=== PATIENT | female | born 1945 | race Caucasian/White ===

== ENCOUNTER 2016-10-19 17:34 | Inpatient (IN) | payer MEDICARE ==
[~2016-10-19] VITALS: Ht 170.2 cm; Wt 100.3 kg
[2016-10-19] MEDS ORDERED: LISI40TA PO (17:46)
[2016-10-19] MEDS ORDERED: FLUT9.9S NEB (17:46)
[2016-10-19] MEDS ORDERED: ALBU0.63 NEB (17:46)
[2016-10-19] MEDS ORDERED: ONDANSETRON 2MG/ML, 2ML ONE ×2 (18:18→22:08)
[2016-10-19] MEDS ORDERED: SODIUM CHLORIDE 0.9% 1,000ML IVBOLUS ONE ×2 (18:30→19:30)
[2016-10-19] MEDS ORDERED: ONDANSETRON 2MG/ML, 2ML IVPush ONE (18:30)
[2016-10-19] MEDS ORDERED: PLEASE ENTER ALLERGIES MC SCH ×2 (18:30)
[2016-10-19 19:06] LABS: ASPARTATE AMINO TRANSFERASE 35 U/L (15-37); BLOOD UREA NITROGEN 64 mg/dL (7-18)
[2016-10-19 19:12] LABS: IS PT STATUS REG ER OR PRE ER? YES
[2016-10-19] MEDS ORDERED: PHYTONADIONE 5 MG TABLET PO ONE (22:00)
[2016-10-19] MEDS ORDERED: FENTANYL PF 100 MCG/2ML ONE (22:08)
[2016-10-19] MEDS: ONDANSETRON 2MG/ML, 2ML IVPush PRN (22:10)
[2016-10-19] MEDS: FENTANYL PF 100 MCG/2ML IVPush PRN (22:11)
[2016-10-20] MEDS: FAMOTIDINE 20 MG/2 ML IVPush SCH ×2 (00:16→08:04)
[2016-10-20] MEDS: SODIUM CHLORIDE 0.9% 1,000 ML IV SCH ×3 (00:16→22:32)
[2016-10-20] MEDS: CEFTRIAXONE PMX 1GM/50ML 50 ML IV SCH ×2 (02:00→10:18)
[2016-10-20] MEDS: FENTANYL PF 100 MCG/2ML IVPush PRN ×5 (02:50→20:57)
[2016-10-20 04:13] VITALS: BP 163/90
[2016-10-20 06:10] LABS: BLOOD UREA NITROGEN 55 mg/dL (7-18)
[2016-10-20 06:11] LABS: ASPARTATE AMINO TRANSFERASE 27 U/L (15-37)
[2016-10-20 07:05] VITALS: BP 162/85
[2016-10-20] MEDS: ONDANSETRON 2MG/ML, 2ML IVPush PRN ×2 (08:02→15:44)
[2016-10-20] MEDS: LACTULOSE 10 GM/15 ML UDC PO SCH ×3 (08:06→21:00)
[2016-10-20] MEDS: PHYTONADIONE 10 MG/ML, 1ML SQ SCH (10:10)
[2016-10-20] MEDS ORDERED: ONDANSETRON 2MG/ML, 2ML ONE (12:49)
[2016-10-20] MEDS ORDERED: SUCCINYLCHOLINE 20 MG/ML, 10ML ONE (12:49)
[2016-10-20] MEDS ORDERED: PROPOFOL 10 MG/ML, 20ML ONE (12:49)
[2016-10-20] MEDS ORDERED: DEXAMETHASONE 4 MG/ML, 1ML ONE (12:49)
[2016-10-20] MEDS ORDERED: MIDAZOLAM 1 MG/ML, 2ML ONE (12:50)
[2016-10-20] MEDS ORDERED: FENTANYL PF 250 MCG/5ML ONE (12:50)
[2016-10-20] MEDS ORDERED: hydrALAzine 20 MG/ML, 1ML IV PRN (13:30)
[2016-10-20] MEDS ORDERED: ACETAMINOPHEN 325 MG TABLET PO PRN (13:30)
[2016-10-20] MEDS ORDERED: OXYcodone 5 MG/5 ML ORAL.SOL UDC PO PRN (13:30)
[2016-10-20] MEDS ORDERED: ONDANSETRON 2MG/ML, 2ML IVPush PRN (13:30)
[2016-10-20] MEDS ORDERED: LABETALOL 5MG/ML, 20ML IV PRN (13:30)
[2016-10-20] MEDS ORDERED: PROMETHAZINE 25 MG/ML, 1ML IV PRN (13:30)
[2016-10-20] MEDS ORDERED: HYDROcodone/APAP 7.5-325MG/15ML UDC PO PRN (13:30)
[2016-10-20] MEDS ORDERED: EPHEDRINE 50 MG/ML, 1ML IVPush PRN (13:30)
[2016-10-20] MEDS ORDERED: FENTANYL PF 100 MCG/2ML ONE (13:42)
[2016-10-20] MEDS: FENTANYL PF 100 MCG/2ML IV PRN ×2 (13:45→14:25)
[2016-10-20 15:03] VITALS: BP 169/91
[2016-10-20] MEDS: PHENAZOPYRIDINE 200 MG TABLET PO SCH ×2 (16:39→20:57)
[2016-10-20] MEDS ORDERED: OMNIPAQUE 350 MG/ML, 50 ML BOTTLE ONE (17:28)
[2016-10-20 18:58] VITALS: BP 151/82
[2016-10-20] MEDS ORDERED: LISINOPRIL 20 MG TABLET PO SCH (21:30)
[2016-10-20] MEDS ORDERED: LISINOPRIL 20 MG TABLET HOMEMEDPO SCH (22:30)
[2016-10-20] MEDS: LISINOPRIL 40 MG HOMEMEDPO SCH (22:30)
[2016-10-21] MEDS: ONDANSETRON 2MG/ML, 2ML IVPush PRN ×3 (01:43→21:15)
[2016-10-21] MEDS: FENTANYL PF 100 MCG/2ML IVPush PRN ×5 (01:44→21:15)
[2016-10-21 01:53] VITALS: BP 136/69
[2016-10-21 05:39] LABS: BLOOD UREA NITROGEN 47 mg/dL (7-18)
[2016-10-21] MEDS: SODIUM CHLORIDE 0.9% 1,000 ML IV SCH ×4 (06:09→23:42)
[2016-10-21 06:50] VITALS: BP 152/75
[2016-10-21 07:00] VITALS: BP 131/81
[2016-10-21] MEDS: LACTULOSE 10 GM/15 ML UDC PO SCH ×2 (09:00→21:00)
[2016-10-21] MEDS ORDERED: LISINOPRIL 20 MG TABLET HOMEMEDPO SCH (09:00)
[2016-10-21] MEDS: FAMOTIDINE 20 MG/2 ML IVPush SCH (10:20)
[2016-10-21] MEDS: PHENAZOPYRIDINE 200 MG TABLET PO SCH ×3 (10:34→21:00)
[2016-10-21] MEDS: CEFTRIAXONE PMX 1GM/50ML 50 ML IV SCH (10:35)
[2016-10-21] MEDS: PHYTONADIONE 10 MG/ML, 1ML SQ SCH (10:41)
[2016-10-21] MEDS: LORazepam 2 MG/ML, 1ML IVPush PRN ×2 (12:38→21:15)
[2016-10-21 14:54] VITALS: BP 138/63
[2016-10-21] MEDS ORDERED: MAGNESIUM CITRATE 300ML ORAL SOL PO PRN (17:00)
[2016-10-21 18:38] VITALS: BP 133/77
[2016-10-21] MEDS: LISINOPRIL 40 MG HOMEMEDPO SCH (21:00)
[2016-10-22] MEDS: FENTANYL PF 100 MCG/2ML IVPush PRN ×3 (01:28→22:15)
[2016-10-22] MEDS: LORazepam 2 MG/ML, 1ML IVPush PRN ×2 (01:28→13:02)
[2016-10-22] MEDS: ONDANSETRON 2MG/ML, 2ML IVPush PRN ×3 (03:20→20:45)
[2016-10-22 04:23] VITALS: BP 132/58
[2016-10-22 06:21] LABS: BLOOD UREA NITROGEN 41 mg/dL (7-18)
[2016-10-22] MEDS: PHENAZOPYRIDINE 200 MG TABLET PO SCH ×2 (08:01→20:35)
[2016-10-22] MEDS: PHYTONADIONE 10 MG/ML, 1ML SQ SCH (09:00)
[2016-10-22] MEDS ORDERED: FENTANYL PF 100 MCG/2ML ONE (09:22)
[2016-10-22] MEDS ORDERED: MIDAZOLAM 1 MG/ML, 5ML ONE (09:22)
[2016-10-22] MEDS ORDERED: NALOXONE 1 MG/ML, 2ML ONE (09:23)
[2016-10-22] MEDS ORDERED: FLUMAZENIL 0.1 MG/1 ML, 5ML ONE (09:23)
[2016-10-22] MEDS ORDERED: MAGNESIUM SULFATE PMX 4GM/100M 100 ML IV ONE (13:13)
[2016-10-22] MEDS: LACTULOSE 10 GM/15 ML UDC PO SCH (21:00)
[2016-10-22] MEDS: CEFTRIAXONE PMX 1GM/50ML 50 ML IV SCH ×2 (21:25→21:30)
[2016-10-23] MEDS: LORazepam 2 MG/ML, 1ML IVPush PRN ×5 (01:00→23:12)
[2016-10-23] MEDS: FENTANYL PF 100 MCG/2ML IVPush PRN ×6 (02:00→23:47)
[2016-10-23] MEDS: ONDANSETRON 2MG/ML, 2ML IVPush PRN ×2 (04:20→21:08)
[2016-10-23] MEDS ORDERED: METOPROLOL 1 MG/ML, 5ML ONE ×2 (04:34→04:44)
[2016-10-23] MEDS: METOPROLOL 1 MG/ML, 5ML IVPush PRN ×3 (04:35→04:50)
[2016-10-23] MEDS ORDERED: LABETALOL 5MG/ML, 20ML IV ONE (06:40)
[2016-10-23 06:52] VITALS: BP 137/81
[2016-10-23] MEDS: SODIUM CHLORIDE 0.9% 1,000 ML IV SCH ×5 (08:00→16:00)
[2016-10-23] MEDS: DOCUSATE 100 MG CAPSULE PO SCH (09:00)
[2016-10-23] MEDS: FAMOTIDINE 20 MG/2 ML IVPush SCH (09:00)
[2016-10-23] MEDS: LACTULOSE 10 GM/15 ML UDC PO SCH ×2 (09:00→21:00)
[2016-10-23] MEDS: LISINOPRIL 40 MG HOMEMEDPO SCH ×2 (09:00→10:20)
[2016-10-23] MEDS: PHENAZOPYRIDINE 200 MG TABLET PO SCH ×4 (10:20→21:00)
[2016-10-23 12:35] VITALS: BP 101/71
[2016-10-23 14:52] VITALS: BP 158/84
[2016-10-23 18:22] LABS: IS PT STATUS REG ER OR PRE ER? NO
[2016-10-23 18:51] VITALS: BP 155/88
[2016-10-23] MEDS: CEFTRIAXONE PMX 1GM/50ML 50 ML IV SCH (23:02)
[2016-10-24] MEDS: FENTANYL PF 100 MCG/2ML IVPush PRN ×3 (00:36→08:34)
[2016-10-24 01:57] LABS: IS PT STATUS REG ER OR PRE ER? NO
[2016-10-24] MEDS: LORazepam 2 MG/ML, 1ML IVPush PRN ×2 (02:45→08:34)
[2016-10-24 03:07] VITALS: BP 170/98
[2016-10-24 03:40] VITALS: BP 160/88
[2016-10-24 06:36] VITALS: BP 160/90
[2016-10-24] MEDS: ONDANSETRON 2MG/ML, 2ML IVPush PRN (06:38)
[2016-10-24] MEDS: LISINOPRIL 40 MG HOMEMEDPO SCH (08:35)
[2016-10-24] MEDS: FAMOTIDINE 20 MG/2 ML IVPush SCH (08:36)
[2016-10-24] MEDS: LACTULOSE 10 GM/15 ML UDC PO SCH ×2 (08:37→20:13)
[2016-10-24] MEDS: DOCUSATE 100 MG CAPSULE PO SCH (08:37)
[2016-10-24] MEDS: PHENAZOPYRIDINE 200 MG TABLET PO SCH ×3 (08:39→20:07)
[2016-10-24 10:12] LABS: BLOOD UREA NITROGEN 27 mg/dL (7-18)
[2016-10-24 10:20] LABS: IS PT STATUS REG ER OR PRE ER? NO
[2016-10-24] MEDS ORDERED: FENTANYL 1500 MCG/30 ML PCA IV PRN (11:34)
[2016-10-24] MEDS ORDERED: FENTANYL 25 MCG PATCH ONE (11:43)
[2016-10-24] MEDS: FENTANYL 25 MCG PATCH TD SCH (12:13)
[2016-10-24 12:35] VITALS: BP 147/85
[2016-10-24] MEDS: HEPARIN 5,000 UNITS/ML, 1ML SQ SCH ×2 (14:49→20:06)
[2016-10-24] MEDS ORDERED: SODIUM CHLORIDE 0.9% 1,000 ML IV SCH (16:00)
[2016-10-24 19:56] VITALS: BP 154/91
[2016-10-24 21:27] VITALS: BP 119/85
[2016-10-24] MEDS ORDERED: POTASSIUM CHLORIDE 20 MEQ TAB.ER.PRT PO ONE (22:00)
[2016-10-24] MEDS ORDERED: POTASSIUM CHLORIDE 20 MEQ in SODIUM CHLORIDE 0.9% 250 ML IV ONE (22:00)
[2016-10-24 22:29] LABS: BLOOD UREA NITROGEN 24 mg/dL (7-18)
[2016-10-24] MEDS: SODIUM CHLORIDE 0.9% 1,000 ML IV SCH (22:44)
[2016-10-25] MEDS ORDERED: MAGNESIUM SULFATE PMX 2GM/50ML 50 ML IV ONE
[2016-10-25] MEDS ORDERED: POTASSIUM CHLORIDE 20 MEQ in SODIUM CHLORIDE 0.9% 250 ML IV ONE
[2016-10-25 03:19] VITALS: BP 151/83
[2016-10-25] MEDS: HEPARIN 5,000 UNITS/ML, 1ML SQ SCH ×3 (06:16→22:11)
[2016-10-25] MEDS: SODIUM CHLORIDE 0.9% 1,000 ML IV SCH ×2 (06:17→17:10)
[2016-10-25 06:43] VITALS: BP 162/91
[2016-10-25 07:33] LABS: ASPARTATE AMINO TRANSFERASE 28 U/L (15-37); BLOOD UREA NITROGEN 21 mg/dL (7-18)
[2016-10-25] MEDS: LISINOPRIL 40 MG HOMEMEDPO SCH (09:00)
[2016-10-25] MEDS: PHENAZOPYRIDINE 200 MG TABLET PO SCH ×3 (09:00→21:00)
[2016-10-25] MEDS: LACTULOSE 10 GM/15 ML UDC PO SCH ×2 (09:00→21:00)
[2016-10-25] MEDS: FAMOTIDINE 20 MG/2 ML IVPush SCH (09:19)
[2016-10-25] MEDS: DOCUSATE 100 MG CAPSULE PO SCH (09:19)
[2016-10-25] MEDS: ONDANSETRON 2MG/ML, 2ML IVPush PRN ×2 (09:21→17:07)
[2016-10-25] MEDS: CEFTRIAXONE PMX 1GM/50ML 50 ML IV SCH (10:06)
[2016-10-25] MEDS ORDERED: POTASSIUM CHLORIDE 40 MEQ in SODIUM CHLORIDE 0.9% 500 ML IV ONE (11:00)
[2016-10-25 12:29] VITALS: BP 171/91
[2016-10-25 15:05] LABS: BLOOD UREA NITROGEN 38 mg/dL (7-18)
[2016-10-25 15:21] LABS: IS PT STATUS REG ER OR PRE ER? NO
[2016-10-25 19:39] VITALS: BP 154/96
[2016-10-26] MEDS: SODIUM CHLORIDE 0.9% 1,000 ML IV SCH ×3 (02:40→22:52)
[2016-10-26 02:42] VITALS: BP 139/90
[2016-10-26] MEDS: HEPARIN 5,000 UNITS/ML, 1ML SQ SCH ×2 (05:33→17:37)
[2016-10-26 06:06] LABS: BLOOD UREA NITROGEN 24 mg/dL (7-18)
[2016-10-26] MEDS ORDERED: MAGNESIUM SULFATE PMX 2GM/50ML 50 ML IV ONE (06:30)
[2016-10-26 07:00] VITALS: BP 139/87
[2016-10-26] MEDS: FAMOTIDINE 20 MG/2 ML IVPush SCH (09:00)
[2016-10-26] MEDS: DOCUSATE 100 MG CAPSULE PO SCH (09:00)
[2016-10-26] MEDS: LACTULOSE 10 GM/15 ML UDC PO SCH ×2 (09:00→20:07)
[2016-10-26] MEDS: PHENAZOPYRIDINE 200 MG TABLET PO SCH ×3 (09:14→20:06)
[2016-10-26] MEDS: LISINOPRIL 40 MG HOMEMEDPO SCH (09:15)
[2016-10-26] MEDS ORDERED: FAMOTIDINE 20 MG TABLET PO ONE (09:30)
[2016-10-26] MEDS: ONDANSETRON 2MG/ML, 2ML IVPush PRN (10:37)
[2016-10-26] MEDS: CEFTRIAXONE PMX 1GM/50ML 50 ML IV SCH (11:45)
[2016-10-26 12:54] VITALS: BP 159/92
[2016-10-26 18:49] VITALS: BP_SYST 170; BP_SYST 175; BP_DIAS 93; BP_DIAS 99
[2016-10-26] MEDS: METOPROLOL 1 MG/ML, 5ML IVPush PRN (20:06)
[2016-10-26 21:39] VITALS: BP 158/78
[2016-10-27 00:55] VITALS: BP 146/89
[2016-10-27] MEDS: HEPARIN 5,000 UNITS/ML, 1ML SQ SCH ×3 (03:51→16:50)
[2016-10-27] MEDS: SODIUM CHLORIDE 0.9% 1,000 ML IV SCH ×2 (06:00→16:51)
[2016-10-27 07:32] VITALS: BP 165/86
[2016-10-27] MEDS: DOCUSATE 100 MG CAPSULE PO SCH (07:44)
[2016-10-27] MEDS: LACTULOSE 10 GM/15 ML UDC PO SCH ×2 (07:44→22:07)
[2016-10-27] MEDS: LISINOPRIL 40 MG HOMEMEDPO SCH (07:48)
[2016-10-27] MEDS: PHENAZOPYRIDINE 200 MG TABLET PO SCH ×3 (07:49→22:07)
[2016-10-27] MEDS ORDERED: MAGNESIUM SULFATE PMX 2GM/50ML 50 ML IV ONE (09:30)
[2016-10-27] MEDS: ONDANSETRON 2MG/ML, 2ML IVPush PRN (10:04)
[2016-10-27] MEDS: MAGNESIUM CHLORIDE 64 MG TABLET.DR PO SCH ×2 (10:51→22:07)
[2016-10-27] MEDS: ERGOCALCIFEROL 50,000 UNIT CAPSULE PO SCH (10:51)
[2016-10-27] MEDS: CEFTRIAXONE PMX 1GM/50ML 50 ML IV SCH (10:52)
[2016-10-27] MEDS: FENTANYL REMOVE PATCH NOTE XX SCH (10:55)
[2016-10-27] MEDS: FENTANYL 25 MCG PATCH TD SCH (12:45)
[2016-10-27 14:57] VITALS: BP 159/84
[2016-10-27] MEDS: AMLODIPINE 5 MG TABLET PO SCH (16:50)
[2016-10-27 19:41] VITALS: BP 161/91
[2016-10-28] MEDS: SODIUM CHLORIDE 0.9% 1,000 ML IV SCH ×3 (01:44→18:00)
[2016-10-28] MEDS: HEPARIN 5,000 UNITS/ML, 1ML SQ SCH ×3 (01:52→18:00)
[2016-10-28 01:55] VITALS: BP 134/78
[2016-10-28] MEDS: ONDANSETRON 2MG/ML, 2ML IVPush PRN ×2 (07:18→22:06)
[2016-10-28 07:56] VITALS: BP 158/70
[2016-10-28] MEDS: LACTULOSE 10 GM/15 ML UDC PO SCH ×2 (08:58→21:00)
[2016-10-28] MEDS: PHENAZOPYRIDINE 200 MG TABLET PO SCH ×3 (08:58→22:06)
[2016-10-28] MEDS: MAGNESIUM CHLORIDE 64 MG TABLET.DR PO SCH ×2 (08:58→22:06)
[2016-10-28] MEDS: AMLODIPINE 5 MG TABLET PO SCH (08:58)
[2016-10-28] MEDS: DOCUSATE 100 MG CAPSULE PO SCH (08:58)
[2016-10-28] MEDS: LISINOPRIL 40 MG HOMEMEDPO SCH (09:00)
[2016-10-28] MEDS: CEFTRIAXONE PMX 1GM/50ML 50 ML IV SCH (10:15)
[2016-10-28 13:26] VITALS: BP 147/84
[2016-10-28 19:14] VITALS: BP 131/69
[2016-10-29] VITALS (9 sets, daily range): BP systolic 88–154; BP diastolic 57–91
[2016-10-29] MEDS: SODIUM CHLORIDE 0.9% 1,000 ML IV SCH (03:32)
[2016-10-29] MEDS: HEPARIN 5,000 UNITS/ML, 1ML SQ SCH ×3 (03:33→16:06)
[2016-10-29] MEDS: LACTULOSE 10 GM/15 ML UDC PO SCH ×2 (09:00→21:00)
[2016-10-29] MEDS: FAMOTIDINE 20 MG TABLET PO SCH ×2 (09:06→21:58)
[2016-10-29] MEDS: DOCUSATE 100 MG CAPSULE PO SCH (09:38)
[2016-10-29] MEDS: MAGNESIUM CHLORIDE 64 MG TABLET.DR PO SCH ×2 (09:38→21:59)
[2016-10-29] MEDS: PHENAZOPYRIDINE 200 MG TABLET PO SCH ×3 (09:38→21:59)
[2016-10-29] MEDS: AMLODIPINE 5 MG TABLET PO SCH (09:38)
[2016-10-29] MEDS: LISINOPRIL 40 MG HOMEMEDPO SCH (09:41)
[2016-10-29] MEDS: ONDANSETRON 2MG/ML, 2ML IVPush PRN (10:01)
[2016-10-29] MEDS: METOCLOPRAMIDE 10MG TABLET PO SCH ×3 (12:34→22:00)
[2016-10-29] MEDS: METOPROLOL 1 MG/ML, 5ML IVPush PRN (17:57)
[2016-10-29] MEDS: METOPROLOL TARTRATE 50 MG TABLET PO SCH (18:00)
[2016-10-29] MEDS: SODIUM CHLORIDE 0.9% 500 ML IV SCH ×6 (18:36→23:30)
[2016-10-29 21:13] LABS: IS PT STATUS REG ER OR PRE ER? NO
[2016-10-30 02:12] VITALS: BP 135/80
[2016-10-30 06:15] VITALS: BP 154/84
[2016-10-30] MEDS: HEPARIN 5,000 UNITS/ML, 1ML SQ SCH ×3 (06:17→22:13)
[2016-10-30] MEDS: METOPROLOL TARTRATE 50 MG TABLET PO SCH ×2 (06:17→17:32)
[2016-10-30 07:02] LABS: BLOOD UREA NITROGEN 29 mg/dL (7-18)
[2016-10-30 07:19] LABS: IS PT STATUS REG ER OR PRE ER? NO
[2016-10-30] MEDS ORDERED: POTASSIUM CHLORIDE 20 MEQ TAB.ER.PRT PO ONE (08:00)
[2016-10-30] MEDS ORDERED: POTASSIUM CHLORIDE 40 MEQ in SODIUM CHLORIDE 0.9% 500 ML IV ONE (08:00)
[2016-10-30] MEDS: PHENAZOPYRIDINE 200 MG TABLET PO SCH ×3 (08:32→21:48)
[2016-10-30] MEDS: DOCUSATE 100 MG CAPSULE PO SCH (08:32)
[2016-10-30] MEDS: FAMOTIDINE 20 MG TABLET PO SCH (08:32)
[2016-10-30] MEDS: MAGNESIUM CHLORIDE 64 MG TABLET.DR PO SCH ×2 (08:32→21:48)
[2016-10-30] MEDS: LISINOPRIL 40 MG HOMEMEDPO SCH (08:33)
[2016-10-30] MEDS: METOCLOPRAMIDE 10MG TABLET PO SCH ×4 (08:34→21:48)
[2016-10-30] MEDS: LACTULOSE 10 GM/15 ML UDC PO SCH ×2 (08:39→21:00)
[2016-10-30] MEDS: FENTANYL REMOVE PATCH NOTE XX SCH (10:56)
[2016-10-30] MEDS ORDERED: FENTANYL 25 MCG PATCH TD SCH (11:34)
[2016-10-30 11:54] LABS: IS PT STATUS REG ER OR PRE ER? NO
[2016-10-30 14:31] VITALS: BP 154/78
[2016-10-30 15:49] LABS: BLOOD UREA NITROGEN 27 mg/dL (7-18)
[2016-10-30] MEDS: ONDANSETRON 2MG/ML, 2ML IVPush PRN (18:21)
[2016-10-30] MEDS ORDERED: SODIUM CHLORIDE 0.9% 500 ML IV PRN (18:30)
[2016-10-30 19:45] VITALS: BP 133/77
[2016-10-31 01:12] VITALS: BP 146/83
[2016-10-31 05:40] LABS: BLOOD UREA NITROGEN 31 mg/dL (7-18)
[2016-10-31] MEDS: HEPARIN 5,000 UNITS/ML, 1ML SQ SCH ×3 (06:25→22:10)
[2016-10-31] MEDS: FENTANYL PF 100 MCG/2ML IVPush PRN ×4 (06:25→20:26)
[2016-10-31 07:28] VITALS: BP 153/74
[2016-10-31] MEDS: LISINOPRIL 40 MG HOMEMEDPO SCH (09:00)
[2016-10-31] MEDS ORDERED: FAMOTIDINE 20 MG TABLET PO SCH (09:00)
[2016-10-31] MEDS ORDERED: POTASSIUM CHLORIDE 40 MEQ in SODIUM CHLORIDE 0.9% 500 ML IV ONE (09:00)
[2016-10-31] MEDS ORDERED: POTASSIUM CHLORIDE 20 MEQ TAB.ER.PRT PO ONE (09:00)
[2016-10-31] MEDS: METOCLOPRAMIDE 10MG TABLET PO SCH ×4 (10:33→20:26)
[2016-10-31] MEDS: LACTULOSE 10 GM/15 ML UDC PO SCH ×2 (10:35→20:27)
[2016-10-31] MEDS: PHENAZOPYRIDINE 200 MG TABLET PO SCH ×3 (10:37→20:27)
[2016-10-31] MEDS: MAGNESIUM CHLORIDE 64 MG TABLET.DR PO SCH ×2 (10:37→20:26)
[2016-10-31] MEDS: DOCUSATE 100 MG CAPSULE PO SCH (10:44)
[2016-10-31] MEDS: ONDANSETRON 2MG/ML, 2ML IVPush PRN (10:44)
[2016-10-31] MEDS: LORazepam 2 MG/ML, 1ML IVPush PRN (13:59)
[2016-10-31 14:00] VITALS: BP 151/77
[2016-10-31] MEDS ORDERED: BISACODYL 10 MG SUPP PR ONE (16:00)
[2016-10-31] MEDS ORDERED: METOPROLOL TARTRATE 50 MG TABLET PO SCH (18:00)
[2016-10-31] MEDS: METOPROLOL TARTRATE 50 MG TABLET PO SCH ×2 (18:00→20:27)
[2016-10-31] MEDS: POTASSIUM CHLORIDE 20 MEQ TAB.ER.PRT PO SCH (18:36)
[2016-10-31 19:15] VITALS: BP 152/73
[2016-10-31] MEDS: AMITRIPTYLINE 10 MG TABLET PO SCH (20:27)
[2016-10-31] MEDS: FAMOTIDINE 20 MG TABLET PO SCH (20:27)
[2016-11-01 01:24] VITALS: BP 154/76
[2016-11-01 05:48] LABS: BLOOD UREA NITROGEN 33 mg/dL (7-18)
[2016-11-01] MEDS: HEPARIN 5,000 UNITS/ML, 1ML SQ SCH (06:08)
[2016-11-01] MEDS: METOPROLOL TARTRATE 50 MG TABLET PO SCH (06:08)
[2016-11-01] MEDS: FENTANYL PF 100 MCG/2ML IVPush PRN ×4 (06:09→19:54)
[2016-11-01] MEDS ORDERED: POTASSIUM CHLORIDE 10% 40 MEQ/30 ML UDC PO ONE (08:30)
[2016-11-01] MEDS: MAGNESIUM CHLORIDE 64 MG TABLET.DR PO SCH ×2 (08:43→20:59)
[2016-11-01] MEDS: PHENAZOPYRIDINE 200 MG TABLET PO SCH ×3 (08:43→21:00)
[2016-11-01] MEDS: DOCUSATE 100 MG CAPSULE PO SCH (08:44)
[2016-11-01] MEDS: FAMOTIDINE 20 MG TABLET PO SCH ×2 (08:44→21:00)
[2016-11-01] MEDS: AMITRIPTYLINE 10 MG TABLET PO SCH ×2 (08:44→21:00)
[2016-11-01] MEDS: LACTULOSE 10 GM/15 ML UDC PO SCH ×2 (08:44→21:00)
[2016-11-01] MEDS: METOCLOPRAMIDE 10MG TABLET PO SCH ×4 (08:45→21:00)
[2016-11-01] MEDS: LISINOPRIL 40 MG HOMEMEDPO SCH (08:46)
[2016-11-01 08:49] VITALS: BP 128/78
[2016-11-01] MEDS: APIXABAN 5 MG TABLET PO SCH ×2 (09:22→21:00)
[2016-11-01] MEDS: METOPROLOL SUCCINATE 25 MG TAB.ER.24H PO SCH (09:22)
[2016-11-01] MEDS: POTASSIUM CHLORIDE 20 MEQ TAB.ER.PRT PO SCH (17:51)
[2016-11-01 17:56] VITALS: BP 149/82
[2016-11-01 19:49] VITALS: BP 137/76
[2016-11-02] MEDS: FENTANYL PF 100 MCG/2ML IVPush PRN ×4 (00:08→13:19)
[2016-11-02 00:30] VITALS: BP 120/79
[2016-11-02 06:07] LABS: BLOOD UREA NITROGEN 40 mg/dL (7-18)
[2016-11-02] MEDS: METOPROLOL SUCCINATE 25 MG TAB.ER.24H PO SCH (06:08)
[2016-11-02 07:15] VITALS: BP 118/80
[2016-11-02] MEDS: METOCLOPRAMIDE 10MG TABLET PO SCH ×4 (08:04→20:28)
[2016-11-02] MEDS: LISINOPRIL 40 MG HOMEMEDPO SCH (08:26)
[2016-11-02] MEDS: DOCUSATE 100 MG CAPSULE PO SCH (08:27)
[2016-11-02] MEDS: APIXABAN 5 MG TABLET PO SCH ×2 (08:27→20:29)
[2016-11-02] MEDS: LACTULOSE 10 GM/15 ML UDC PO SCH ×2 (08:27→20:32)
[2016-11-02] MEDS: FAMOTIDINE 20 MG TABLET PO SCH (08:27)
[2016-11-02] MEDS: AMITRIPTYLINE 10 MG TABLET PO SCH ×2 (08:27→20:29)
[2016-11-02] MEDS: PHENAZOPYRIDINE 200 MG TABLET PO SCH (08:28)
[2016-11-02] MEDS: MAGNESIUM CHLORIDE 64 MG TABLET.DR PO SCH ×2 (08:28→20:29)
[2016-11-02] MEDS ORDERED: FENTANYL REMOVE PATCH NOTE XX SCH (09:30)
[2016-11-02] MEDS: FENTANYL REMOVE PATCH NOTE XX SCH (11:00)
[2016-11-02] MEDS: LEVOFLOXACIN 250 MG TABLET PO SCH (11:59)
[2016-11-02] MEDS: POTASSIUM CHLORIDE 20 MEQ TAB.ER.PRT PO SCH ×2 (11:59→16:27)
[2016-11-02] MEDS: ONDANSETRON 2MG/ML, 2ML IVPush PRN (11:59)
[2016-11-02] MEDS: PHENAZOPYRIDINE 100 MG TABLET PO SCH ×3 (11:59→20:32)
[2016-11-02] MEDS ORDERED: DOCU-30 PO (12:12)
[2016-11-02] MEDS ORDERED: POTA20TA6 PO (12:12)
[2016-11-02] MEDS ORDERED: FAMO20TA7 PO (12:12)
[2016-11-02] MEDS ORDERED: AMIT10TA PO (12:12)
[2016-11-02] MEDS ORDERED: PHEN-494 PO (12:12)
[2016-11-02] MEDS ORDERED: LEVO250T23 PO (12:12)
[2016-11-02] MEDS ORDERED: APIX5TAB PO (12:12)
[2016-11-02] MEDS ORDERED: ERGO500017 PO (12:12)
[2016-11-02] MEDS ORDERED: MAGN64TA9 PO (12:12)
[2016-11-02] MEDS ORDERED: MAGN300S PO (12:12)
[2016-11-02] MEDS ORDERED: PRED20TA PO (12:12)
[2016-11-02 13:07] VITALS: BP 124/77
[2016-11-02] MEDS ORDERED: FENTANYL 75 MCG PATCH TD SCH (16:00)
[2016-11-02] MEDS: OXYcodone/APAP 7.5/325MG TABLET PO PRN ×2 (16:27→22:39)
[2016-11-02 19:10] VITALS: BP 130/81
[2016-11-03 01:55] VITALS: BP 148/80
[2016-11-03 05:12] LABS: BLOOD UREA NITROGEN 43 mg/dL (7-18)
[2016-11-03] MEDS: METOPROLOL SUCCINATE 25 MG TAB.ER.24H PO SCH (06:09)
[2016-11-03] MEDS: OXYcodone/APAP 7.5/325MG TABLET PO PRN ×2 (06:09→12:44)
[2016-11-03 07:07] VITALS: BP 117/70
[2016-11-03] MEDS ORDERED: FAMOTIDINE 20 MG TABLET PO SCH (09:00)
[2016-11-03] MEDS: LACTULOSE 10 GM/15 ML UDC PO SCH (09:00)
[2016-11-03] MEDS: LISINOPRIL 40 MG HOMEMEDPO SCH (09:00)
[2016-11-03] MEDS: MAGNESIUM CHLORIDE 64 MG TABLET.DR PO SCH (09:54)
[2016-11-03] MEDS: AMITRIPTYLINE 10 MG TABLET PO SCH (09:55)
[2016-11-03] MEDS: METOCLOPRAMIDE 10MG TABLET PO SCH ×2 (09:55→12:44)
[2016-11-03] MEDS: PHENAZOPYRIDINE 100 MG TABLET PO SCH (09:55)
[2016-11-03] MEDS: ERGOCALCIFEROL 50,000 UNIT CAPSULE PO SCH (09:55)
[2016-11-03] MEDS: DOCUSATE 100 MG CAPSULE PO SCH (09:55)
[2016-11-03] MEDS: POTASSIUM CHLORIDE 20 MEQ TAB.ER.PRT PO SCH (09:55)
[2016-11-03] MEDS: APIXABAN 5 MG TABLET PO SCH (09:55)
[2016-11-03] MEDS ORDERED: OXYC1TAB8 PO (11:53)
[2016-11-03] MEDS ORDERED: FENT1PAT77 TD (11:53)
[2016-11-03 12:30] VITALS: BP 127/73
[2016-11-03] MEDS ORDERED: AZAT50TA9 PO (12:38)
[2016-11-03] MEDS: LEVOFLOXACIN 250 MG TABLET PO SCH (12:43)
[2016-11-04] MEDS ORDERED: AZATHIOPRINE 50 MG TABLET PO SCH (09:00)
[2016-11-05] MEDS ORDERED: FENTANYL REMOVE PATCH NOTE XX SCH (16:00)
== END 2016-11-03 15:55 | DRG 393 ==
LOC: ED 20:03 → EDIP 21:02 → 3NE 22:44 → 5SO 10-23 14:19 → 4WST 10-29 11:55 → 4EST 10-29 21:19
PROVIDERS: ADMIT Internal Medicine; ATTEND Internal Medicine
PROC: 0T9B70Z Drainage of Bladder with Drainage Device, Via Natural or Artificial Opening (ICD-10-PCS; 2016-10-19)
PROC: 0T788DZ Dilation of Bilateral Ureters with Intraluminal Device, Via Natural or Artificial Opening Endoscopic (ICD-10-PCS; 2016-10-20)
PROC: BT141ZZ Fluoroscopy of Kidneys, Ureters and Bladder using Low Osmolar Contrast (ICD-10-PCS; 2016-10-20)
PROC: 0WBH3ZX Excision of Retroperitoneum, Percutaneous Approach, Diagnostic (ICD-10-PCS; principal; 2016-10-22)
DX: D20.0 Benign neoplasm of soft tissue of retroperitoneum (principal); K85.90 Acute pancreatitis without necrosis or infection, unspecified; E43 Unspecified severe protein-calorie malnutrition; N17.0 Acute kidney failure with tubular necrosis; D68.69 Other thrombophilia; I47.2 Ventricular tachycardia; N13.6 Pyonephrosis; E66.3 Overweight; Z68.36 Body mass index [BMI] 36.0-36.9, adult; E83.42 Hypomagnesemia; E87.6 Hypokalemia; G47.30 Sleep apnea, unspecified; G89.29 Other chronic pain; I10 Essential (primary) hypertension; I35.8 Other nonrheumatic aortic valve disorders; I48.0 Paroxysmal atrial fibrillation; I49.3 Ventricular premature depolarization; J31.0 Chronic rhinitis; K59.00 Constipation, unspecified; K80.20 Calculus of gallbladder without cholecystitis without obstruction; M54.5 Low back pain; M51.36 Other intervertebral disc degeneration, lumbar region; M19.90 Unspecified osteoarthritis, unspecified site; M47.816 Spondylosis without myelopathy or radiculopathy, lumbar region; Z79.899 Other long term (current) drug therapy; Z80.1 Family history of malignant neoplasm of trachea, bronchus and lung; Z82.49 Family history of ischemic heart disease and other diseases of the circulatory system; Z88.2 Allergy status to sulfonamides; Z88.1 Allergy status to other antibiotic agents; Z91.040 Latex allergy status; Z91.018 Allergy to other foods
CPT/HCPCS: 36415; 49180; 72131; 74176; 74420; 77012; 80048; 80053; 81001; 82306; 82607; 83036; 83690; 83735; 84100; 84443; 84484; 85025; 85610; 85651; 85730; 86038; 86140; 87086; 88304; 88333; 88341; 88342; 93005; 93306; 96361; 96374; 96375; 96376; 99156; 99157; J0696; J1100; J1644; J2250; J2405; J2704; J3010; J3430; J3480; Q9967; C1769; C2617; G0461; J0330; J2060; J2310; J3475; J7030; J7040; J7050; J7512; S0028

== ENCOUNTER 2016-11-08 11:25 | Inpatient (IN) | payer MEDICARE ==
[~2016-11-08] VITALS: Ht 170.2 cm; Wt 100.5 kg
[~2016-11-08 11:25] MED LIST: ALBU0.63 NEB; AMIT10TA PO; APIX5TAB PO; AZAT50TA9 PO; DOCU-30 PO; ERGO500017 PO; FAMO20TA7 PO; FENT1PAT77 TD; FLUT9.9S NEB; LEVO250T23 PO; LISI40TA PO; MAGN300S PO; MAGN64TA9 PO; OXYC1TAB8 PO; PHEN-494 PO; POTA20TA6 PO; PRED20TA PO
[2016-11-08] MEDS ORDERED: FAMOTIDINE 20 MG/2 ML IVPush ONE (12:30)
[2016-11-08] MEDS ORDERED: SODIUM CHLORIDE FLUSH 10ML SYR IVF ONE (12:30)
[2016-11-08] MEDS ORDERED: ONDANSETRON 2MG/ML, 2ML ONE (12:30)
[2016-11-08] MEDS ORDERED: ONDANSETRON 2MG/ML, 2ML IVPush ONE (12:30)
[2016-11-08] MEDS ORDERED: SODIUM CHLORIDE 0.9% 1,000ML IVBOLUS ONE ×2 (12:30→18:00)
[2016-11-08] MEDS ORDERED: HYDROmorphone 1 MG/ML, 1ML IVPush PRN (12:30)
[2016-11-08] MEDS ORDERED: HYDROmorphone 1 MG/ML, 1ML ONE (12:30)
[2016-11-08] MEDS ORDERED: PANTOPRAZOLE 40 MG IV IVPush ONE (12:30)
[2016-11-08] MEDS ORDERED: PANTOPRAZOLE 40 MG IV ONE (12:34)
[2016-11-08] MEDS ORDERED: FAMOTIDINE 20 MG/2 ML ONE (12:34)
[2016-11-08 13:22] LABS: ASPARTATE AMINO TRANSFERASE 25 U/L (15-37); BLOOD UREA NITROGEN 81 mg/dL (7-18)
[2016-11-08 13:23] LABS: DIFF TOTAL CELLS COUNTED 100 CELL DIFF
[2016-11-08] MEDS ORDERED: LISI-167 PO (13:33)
[2016-11-08] MEDS ORDERED: CYCL5TAB PO (13:33)
[2016-11-08] MEDS ORDERED: LACT1CAP43 PO (13:34)
[2016-11-08] MEDS ORDERED: ONDA4TAB7 PO (13:35)
[2016-11-08] MEDS ORDERED: MAGN400O4 PO (13:38)
[2016-11-08 13:51] LABS: ANISOCYTOSIS 1+; VERIFY COUNTS? YES
[2016-11-08] MEDS ORDERED: SODIUM POLY SULFONATE UDC 15 GM/60 ML PO ONE (14:00)
[2016-11-08] MEDS ORDERED: DEXTROSE 50%, 50ML SYRINGE IVPush ONE (14:00)
[2016-11-08] MEDS ORDERED: INSULIN REGULAR 100 UNITS/ML, 3ML VIAL IVPush ONE (14:00)
[2016-11-08] MEDS ORDERED: SODIUM POLYSTYRENE SULFONATE ORAL SUSP ONE (14:04)
[2016-11-08] MEDS ORDERED: DEXTROSE 50%, 50ML VIAL ONE (14:04)
[2016-11-08] MEDS ORDERED: INSULIN SINGLE DOSE, ER SQ-INSULIN ONE (14:05)
[2016-11-08] MEDS ORDERED: PANTOPRAZOLE 80 MG in SODIUM CHLORIDE 0.9% 100 ML IV SCH (14:30)
[2016-11-08] MEDS ORDERED: ONDANSETRON 2MG/ML, 2ML IVPush PRN (14:30)
[2016-11-08] MEDS ORDERED: PANTOPRAZOLE 80 MG in SODIUM CHLORIDE 0.9% 50 ML IV ONE (14:30)
[2016-11-08] MEDS ORDERED: LABETALOL 5MG/ML, 20ML IVPush PRN (14:30)
[2016-11-08] MEDS ORDERED: CALCIUM CHLORIDE 13.6 MEQ in SODIUM CHLORIDE 0.9% 100 ML IV ONE (14:30)
[2016-11-08] MEDS: SODIUM CHLORIDE 0.9% 1,000 ML IV SCH ×2 (14:30→18:59)
[2016-11-08] MEDS ORDERED: hydrALAzine 20 MG/ML, 1ML IVPush PRN (14:30)
[2016-11-08] MEDS ORDERED: POLYETHYLENE GLYCOL 17 GM PACKET PO PRN (14:30)
[2016-11-08] MEDS ORDERED: morphine SULFATE 10 MG/ML, 1ML IVPush PRN (14:30)
[2016-11-08] MEDS ORDERED: TEMAZEPAM 15 MG CAPSULE PO PRN (14:30)
[2016-11-08] MEDS ORDERED: DOCUSATE 100 MG CAPSULE PO PRN (14:30)
[2016-11-08] MEDS ORDERED: BISACODYL 10 MG SUPP PR PRN (14:30)
[2016-11-08] MEDS ORDERED: ERGOCALCIFEROL 50,000 UNIT CAPSULE PO SCH (15:00)
[2016-11-08] MEDS ORDERED: HYDROmorphone 2 MG/ML, 1ML IVPush PRN (15:00)
[2016-11-08] MEDS ORDERED: FENTANYL 75 MCG PATCH TD SCH (15:00)
[2016-11-08] MEDS ORDERED: PANTOPRAZOLE 40 MG IV IVPush SCH (15:30)
[2016-11-08] MEDS: OXYcodone IR 5MG TABLET PO PRN ×2 (16:52→20:50)
[2016-11-08 18:00] VITALS: BP 67/38
[2016-11-08] MEDS ORDERED: HYDROCORTISONE 100 MG INJ. IVPush SCH (18:00)
[2016-11-08 18:30] VITALS: BP 81/37
[2016-11-08] MEDS ORDERED: SODIUM CHLORIDE 0.9% 1,000ML IVBOLUS PRN (18:30)
[2016-11-08 19:11] VITALS: BP 94/48
[2016-11-08 19:41] LABS: BLOOD UREA NITROGEN 75 mg/dL (7-18)
[2016-11-08 20:00] VITALS: BP 146/55
[2016-11-08] MEDS ORDERED: AMITRIPTYLINE 10 MG TABLET PO SCH (21:00)
[2016-11-08] MEDS ORDERED: metroNIDAZOLE 500 MG TABLET PO SCH (22:30)
[2016-11-09] MEDS ORDERED: NOREPINEPHRINE 1 MG/ML, 4ML ONE (01:45)
[2016-11-09] MEDS: NOREPINEPHRINE 4 MG in SODIUM CHLORIDE 0.9% 246 ML IV PRN ×2 (01:50→03:34)
[2016-11-09] MEDS ORDERED: INSULIN REGULAR 100 UNITS/ML, 3ML VIAL ONE (01:55)
[2016-11-09] MEDS ORDERED: DEXTROSE 50%, 50ML VIAL ONE ×2 (01:56→02:05)
[2016-11-09] MEDS ORDERED: FENTANYL PF 100 MCG/2ML IV ONE (02:00)
[2016-11-09] MEDS ORDERED: DEXTROSE 50%, 50ML SYRINGE IVPush ONE (02:00)
[2016-11-09] MEDS ORDERED: SODIUM CHLORIDE 0.9% 1,000ML IVBOLUS ONE (02:00)
[2016-11-09] MEDS: PROPOFOL 100 ML IV PRN ×2 (02:00→07:52)
[2016-11-09] MEDS ORDERED: ETOMIDATE 20 MG/10 ML IVPush ONE (02:00)
[2016-11-09] MEDS ORDERED: CALCIUM CHLORIDE 13.6 MEQ in SODIUM CHLORIDE 0.9% 100 ML IV ONE (02:00)
[2016-11-09] MEDS ORDERED: INSULIN REGULAR 100 UNITS/ML, 3ML VIAL IVPush ONE (02:00)
[2016-11-09] MEDS ORDERED: SODIUM BICARB 8.4%, 50ML SYRINGE ONE (02:23)
[2016-11-09] MEDS ORDERED: ALBUTEROL SULFATE 2.5 MG/3 ML ONE (02:25)
[2016-11-09] MEDS ORDERED: HYDROCORTISONE 100 MG INJ. IVPush SCH (02:30)
[2016-11-09] MEDS ORDERED: METRONIDAZOLE PMX 500MG/100ML 100 ML IV SCH (02:30)
[2016-11-09] MEDS ORDERED: VANCOMYCIN 50 MG/ML ORAL SUSP NG SCH (02:30)
[2016-11-09] MEDS ORDERED: EPINEPHRINE 2 MG in SODIUM CHLORIDE 0.9% 248 ML IV PRN (03:00)
[2016-11-09] MEDS: ALBUTEROL SULFATE 2.5 MG/3 ML INLINE SCH ×2 (03:30→05:16)
[2016-11-09 03:37] LABS: BLOOD UREA NITROGEN 75 mg/dL (7-18)
[2016-11-09] MEDS ORDERED: VASOPRESSIN 100 UNIT in SODIUM CHLORIDE 0.9% 495 ML IV PRN (04:01)
[2016-11-09] MEDS ORDERED: PHENYLEPHRINE 20 MG in SODIUM CHLORIDE 0.9% 248 ML IV PRN (04:01)
[2016-11-09] MEDS: SODIUM CHLORIDE 0.9% 1,000 ML IV SCH (04:12)
[2016-11-09] MEDS ORDERED: GLUCAGON 1 MG IM PRN (04:30)
[2016-11-09] MEDS ORDERED: FENTANYL PF 100 MCG/2ML IVPush PRN (04:30)
[2016-11-09] MEDS ORDERED: ALBUTEROL/IPRATROPIUM 2.5MG/0.5MG, 3 ML INLINE PRN (04:30)
[2016-11-09] MEDS ORDERED: LIDOCAINE-MPF 1%, 2ML ENDO PRN (04:30)
[2016-11-09] MEDS ORDERED: DEXTROSE 50%, 50ML SYRINGE IVPush PRN (04:30)
[2016-11-09] MEDS ORDERED: NOREPINEPHRINE 8 MG in SODIUM CHLORIDE 0.9% 242 ML IV PRN (05:14)
[2016-11-09 05:33] LABS: BLOOD UREA NITROGEN 73 mg/dL (7-18)
[2016-11-09 05:35] LABS: ASPARTATE AMINO TRANSFERASE 494 U/L (15-37)
[2016-11-09 05:41] LABS: IS PT STATUS REG ER OR PRE ER? NO
[2016-11-09 06:22] VITALS: BP 107/59
[2016-11-09] MEDS ORDERED: ETOMIDATE 20 MG/10 ML ONE (08:00)
[2016-11-09] MEDS ORDERED: ROCURONIUM 10 MG/ML ONE (08:00)
[2016-11-09] MEDS ORDERED: PROPOFOL 10 MG/ML, 100ML IV ONE (08:00)
[2016-11-09] MEDS ORDERED: CEFTRIAXONE 1,000 MG IM SCH (09:00)
[2016-11-09] MEDS ORDERED: AZATHIOPRINE 50 MG TABLET PO SCH (09:00)
[2016-11-09] MEDS ORDERED: CYCLOBENZAPRINE 10 MG TABLET PO SCH (09:00)
[2016-11-09] MEDS ORDERED: LORazepam 2 MG/ML, 1ML IV PRN (09:00)
[2016-11-09] MEDS ORDERED: SODIUM CHLORIDE FLUSH 10ML SYR IVF SCH (09:00)
[2016-11-09] MEDS ORDERED: morphine SULFATE 10 MG/ML, 1ML IV ONE (09:00)
[2016-11-09] MEDS ORDERED: morphine SULFATE 10 MG/ML, 1ML IV PRN (09:00)
[2016-11-09] MEDS ORDERED: ATROPINE OPHTH SOLN 1%, 2ML PO PRN (09:00)
[2016-11-09] MEDS ORDERED: LORazepam 2 MG/ML, 1ML IV ONE (09:00)
== END 2016-11-09 12:52 | disposition expired | DRG 871 ==
LOC: ED 13:08 → EDIP 13:33 → 4WST 16:31 → CCU 11-09 01:27
PROVIDERS: ADMIT Internal Medicine; ATTEND Internal Medicine
PROC: 5A1935Z Respiratory Ventilation, Less than 24 Consecutive Hours (ICD-10-PCS; principal; 2016-11-08)
PROC: 0BH17EZ Insertion of Endotracheal Airway into Trachea, Via Natural or Artificial Opening (ICD-10-PCS; 2016-11-08)
DX: A41.9 Sepsis, unspecified organism (principal); R65.21 Severe sepsis with septic shock; E43 Unspecified severe protein-calorie malnutrition; G93.41 Metabolic encephalopathy; J96.00 Acute respiratory failure, unspecified whether with hypoxia or hypercapnia; K92.2 Gastrointestinal hemorrhage, unspecified; N17.9 Acute kidney failure, unspecified; A04.7 Enterocolitis due to Clostridium difficile; D68.59 Other primary thrombophilia; N39.0 Urinary tract infection, site not specified; E87.6 Hypokalemia; I12.9 Hypertensive chronic kidney disease with stage 1 through stage 4 chronic kidney disease, or unspecified chronic kidney disease; N18.3 Chronic kidney disease, stage 3 (moderate); D63.8 Anemia in other chronic diseases classified elsewhere; E11.22 Type 2 diabetes mellitus with diabetic chronic kidney disease; E55.9 Vitamin D deficiency, unspecified; E87.5 Hyperkalemia; I48.0 Paroxysmal atrial fibrillation; J45.909 Unspecified asthma, uncomplicated; K80.20 Calculus of gallbladder without cholecystitis without obstruction; M10.9 Gout, unspecified; M47.816 Spondylosis without myelopathy or radiculopathy, lumbar region; Z51.5 Encounter for palliative care; Z66 Do not resuscitate; E66.01 Morbid (severe) obesity due to excess calories; G89.21 Chronic pain due to trauma; M19.90 Unspecified osteoarthritis, unspecified site; Z80.1 Family history of malignant neoplasm of trachea, bronchus and lung; Z68.37 Body mass index [BMI] 37.0-37.9, adult
CPT/HCPCS: 36415; 71010; 74000; 80047; 80048; 80053; 80061; 81001; 82533; 82803; 82962; 83036; 83605; 83735; 84145; 84439; 84443; 84478; 84484; 85014; 85018; 85025; 85610; 85730; 86677; 86850; 86900; 87040; 87070; 87081; 87086; 87205; 87324; 93005; 94003; 94640; 96361; 96374; 96375; J1170; J2405; J2704; J3370; J7613; C9113; J0171; J1720; J2060; J2270; J2370; J7030; J7040; J7050; S0028